=== PATIENT | male | born 1935 | race Caucasian/White ===

== ENCOUNTER 2021-02-15 09:57 | Outpatient (CLI) | payer MEDICARE, SELFPAY ==
--- NOTE | ~2021-02-15 | XR_ITS ---
XR abdomen/kub 1V 02/15/2021 10:12 Indication: Gross hematuria Procedure: KUB Comparison: No prior studies for comparison. Findings: Bowel gas pattern nonobstructive. There are right renal stones. There are gallstones. Lung bases unremarkable. There are vascular calcifications in the pelvis. Impression: 1: Right nephrolithiasis. 2: Cholelithiasis. Reviewed, dictated and finalized at location A. Impression: 1: Right nephrolithiasis. 2: Cholelithiasis.
== END 2021-02-15 09:58 | disposition home or self-care (01) ==
PROVIDERS: PCP Emergency Medicine; Visit Provider Nurse Practitioner Adult Health
DX: N20.0 Calculus of kidney (principal); K80.80 Other cholelithiasis without obstruction; R31.0 Gross hematuria
CPT/HCPCS: 74018

== ENCOUNTER 2021-02-23 08:13 | Outpatient (CLI) | payer MEDICARE, SELFPAY ==
--- NOTE | ~2021-02-23 | CT_ITS ---
EXAMINATION: CT abdomen pelvis wo/w con EXAM DATE: 02/23/2021 09:13 INDICATION: Gross hematuria. TECHNIQUE: Spiral CT of the abdomen and pelvis was performed without contrast. The patient was then injected with small bolus intravenous Omnipaque 350, followed by delay of approximately 10 minutes to allow collecting system to opacify. A post contrast scan abdomen and pelvis was performed during inj ection of remaining contrast. A total of 130 cc intravenous contrast was administered. The dose-marie th product (DLP) for this examination was 1782.34 mGy-cm. The exposure was tailored according to pat ient size (auto mA exposure control), and iterative reconstruction (ASIR) was used as additional dose reduction technique. Correlation is made to KUB same date. FINDINGS: There is a 10 mm stone in a right inferior calyx. No other stones. Scattered small renal c ysts up to 1.3 cm on the right. The kidneys enhance symmetrically. There are no suspicious renal le sions. The calyces and opacified portions of ureters are unremarkable, without filling defects or fo benjy suspicious strictures. The bladder is unremarkable. There is moderate prostatomegaly, prostate measuring 6.5 cm in diameter. There are several liver cysts, largest of the right liver dome measuring 3.6 cm. The spleen, adrenal glands and pancreas are unremarkable. There is 1.8 cm gallstone, gallbladder otherwise unremarkable. There is a single left retroperitoneal enlarged lymph node measuring 1.1 cm, relatively low density. There is moderate scattered arteriosclerotic disease. There is large lipoma within right vastus late ralis incompletely imaged but 8.5 cm in transverse dimension. The appendix is normal. There is small to moderate-sized gastroesophageal hiatal hernia. There is co lonic interposition. There is expected amount of colonic stool. There is mild scattered colonic diver ticulosis. There is no adjacent inflammatory change to suggest diverticulitis. No free intraperiton eal gas. The heart is normal in size. There are no pericardial or pleural effusions. The lung bas es are unremarkable. There are no osteoblastic or osteolytic lesions identified. IMPRESSION: 1. Single mildly enlarged left retroperitoneal lymph node. Could be reactive but metastatic disease not excludable. No primary cancer identified. Consider 3 month follow-up CT abdomen. 2. Right nephrolithiasis. 3. Moderate prostatomegaly. 4. Scattered colonic diverticulosis. 5. Large right-sided vastus lateralis lipoma. Reviewed, dictated and finalized at location A. IMPRESSION: 1. Single mildly enlarged left retroperitoneal lymph node. Could be reactive b ut metastatic disease not excludable. No primary cancer identified. Consider 3 month follow-up CT abdomen. 2. Right nephrolithiasis. 3. Moderate prostatomegaly. 4. Scattered colonic diverticulosis. 5. Large right-sided vastus lateralis lipoma.
--- NOTE | ~2021-02-23 | XR_ITS ---
EXAMINATION: XR abdomen/kub 1V EXAM DATE: 02/23/2021 08:38 INDICATION: Gross hematuria TECHNIQUE: Frontal projection(s) of the abdomen for interpretation. Comparison is made to prior exami nation from 02/15/2021. FINDINGS: There is approximately 1 cm right inferior calyceal stone. There is expected amount of colonic stool and gas. No small bowel dilation, nonobstructive bowel ga s pattern. There is no organomegaly suspected. There are bony degenerative changes. IMPRESSION: Right nephrolithiasis. Reviewed, dictated and finalized at location A. IMPRESSION: Right nephrolithiasis.
[2021-02-23 08:46] LABS: Estimated Glomerular Filt Rate > 60
== END 2021-02-23 08:14 | disposition home or self-care (01) ==
PROVIDERS: Visit Provider Nurse Practitioner Adult Health
DX: R31.0 Gross hematuria (principal); N20.0 Calculus of kidney; N40.0 Benign prostatic hyperplasia without lower urinary tract symptoms; R59.0 Localized enlarged lymph nodes; K57.30 Diverticulosis of large intestine without perforation or abscess without bleeding; D17.9 Benign lipomatous neoplasm, unspecified; K76.89 Other specified diseases of liver; K80.80 Other cholelithiasis without obstruction; N28.1 Cyst of kidney, acquired
CPT/HCPCS: 74018; 74178; Q9967

== ENCOUNTER 2021-07-29 15:08 | Outpatient (CLI) | payer MEDICARE, SELFPAY ==
--- NOTE | ~2021-07-29 | CT_ITS ---
EXAMINATION: CT abdomen pelvis w con DATE: 07/29/2021 16:03 INDICATION: Abdominal lymphadenopathy. TECHNIQUE: Computed tomography (CT) of the abdomen and pelvis was performed with 100 mL Omnipaque 350 intravenous contrast. Automated exposure control and iterative reconstruction technique were employe d. The dose-length product was 657.58 mGy-cm. COMPARISON: CT abdomen and pelvis 02/23/2021 FINDINGS: The visualized portions of the lung bases demonstrate mild atelectasis. No pleural effusion . The heart size is normal. There are coronary artery calcifications. No pericardial effusion. There is a small sliding hiatal hernia. There are cysts in the liver measuring up to 4.0 cm. The spleen is normal. There is a gallstone in the gallbladder, which is normal in size. The pancreas and adrenal gl ands are normal. There are cysts in the kidneys measuring up to 1.7 cm on the right. There are 6 mm a nd 7 mm stones in right kidney. The prostate is severely enlarged. There is diverticulosis of the col on without evidence of diverticulitis. There are no dilated loops of bowel. The appendix is normal. T here is a 15 x 20 mm node in the foramen of Jas. There is a 13 x 15 mm left para-aortic lymph nod e. There is an intramuscular lipoma in right thigh. There is no free intraperitoneal fluid. There is severe lumbar spondylosis. IMPRESSION: 1. Mild abdominal lymphadenopathy, stable from 02/23/2021, likely reactive. Reviewed, dictated and finalized at location A.
[2021-07-30 12:20] LABS: Estimated Glomerular Filt Rate > 60
== END 2021-07-29 15:09 | disposition home or self-care (01) ==
LOC: ANHIMG 15:16
PROVIDERS: Visit Provider Urology
DX: R59.0 Localized enlarged lymph nodes (principal)
CPT/HCPCS: 74177; Q9967